=== PATIENT | male | born 1930 | race Caucasian/White ===

== ENCOUNTER 2017-05-30 12:35 | Observation (INO) | payer MEDICARE, OTHER ==
[2017-05-30] VITALS (10 sets, daily range): BP systolic 115–203; BP diastolic 56–88; PULSE 57–66; RESP 16–24; TEMP 97.7–98.6; O2SAT 97–99
[~2017-05-30] VITALS: Ht 180.3 cm; Wt 81.0 kg
[~2017-05-30 12:35] MED LIST: AMBI5TAB PO; COUM5TAB PO; DARV PO; DIOV160T6 PO; LORT7.5T3 PO; ZOCO40TA PO
[2017-05-30] MEDS ORDERED: ZOCO40TA PO (12:49)
[2017-05-30] MEDS ORDERED: SODIUM CHLORIDE 0.9% FLUSH 10 ML FLUSH IVF PRN (13:00)
[2017-05-30] MEDS ORDERED: TETANUS/DIPHTHERIA TOXOID ADULT 0.5 ML VIAL IM ONE (13:00)
[2017-05-30] MEDS ORDERED: TRAM50TA PO (13:21)
[2017-05-30] MEDS ORDERED: GABA300C5 PO (13:21)
[2017-05-30 13:31] LABS: AUTOMATED NEUTROPHIL # 6.8 TH/MM3 (1.8-7.7); BASOPHIL % 0.5 % (0.0-2.0); EOSINOPHIL # 0.3 TH/MM3 (0-0.4); EOSINOPHIL % 2.7 % (0.0-4.0); HEMATOCRIT 37.4 % (39.0-51.0); HEMO FLAGS DIFF FINAL; LYMPH % 16.1 % (9.0-44.0); LYMPHOCYTE # 1.5 TH/MM3 (1.0-4.8); MEAN CELL VOLUME 88.2 FL (80.0-100.0); MEAN CORPUSCULAR HEMOGLOBIN 29.7 PG (27.0-34.0); MEAN CORPUSCULAR HGB CONC 33.7 % (32.0-36.0); MONO % 7.8 % (0.0-8.0); NEUT % 72.9 % (16.0-70.0); PLATELET COUNT 247 TH/MM3 (150-450); RED BLOOD COUNT 4.24 MIL/MM3 (4.50-5.90); RED CELL DISTRIBUTION WIDTH 13.9 % (11.6-17.2); WHITE BLOOD COUNT 9.3 TH/MM3 (4.0-11.0)
--- NOTE | 2017-05-30 13:39 | PD ---
HPI Chief Complaint: Syncope/Near-Syncope Time Seen by Provider: 13:16 Travel History International Travel<30 days: No Contact w/Intl Traveler<30days: No Traveled to known affect area: No History of Present Illness HPI 87 YO M with PMH of bladder cancer presents to the ED via EMS for evaluation [place] fall in the [place] parking lot. The patient states that he was there to volunteer today, but there was no need for him so he walked back out to this car. He is unsure of the events that followed. He states that he was feeling in his normal state of health before the accident. On presentation he denies headache, dizziness, blurred vision, chest pain, palpitations, shortness of breath, abdominal pain, nausea, vomiting, numbness, tingling, weakness, limitations to range of motion of the extremities. PFSH Past Medical History Blood Disorders: No Cancer: Yes (hx of bladder) Cardiovascular Problems: Yes High Cholesterol: Yes Chemotherapy: Yes (yes) Diminished Hearing: No Endocrine: No Gastrointestinal Disorders: Yes GERD: Yes Genitourinary: Yes (hx of bladder cancer) Hypertension: Yes Immune Disorder: No Musculoskeletal: No Neurologic: No Psychiatric: No Reproductive: No Respiratory: No Influenza Vaccination: Yes Past Surgical History Abdominal Surgery: Yes (appendectomy) Eye Surgery: Yes (luz cataract removal) Genitourinary Surgery: Yes (extensive bladder surgery due to cancer received chemo) Other Surgery: Yes Social History Alcohol Use: Yes (occ) Tobacco Use: No Substance Use: No Allergies-Medications (Allergen,Severity, Reaction): Coded Allergies: No Known Allergies (Unverified , 05/30/17) Reported Meds & Prescriptions Reported Meds & Active Scripts Active Reported Tramadol (Tramadol HCl) 50 Mg Tab 50 Mg PO BID Gabapentin 300 Mg Cap 300 Mg PO HS Zocor (Simvastatin) 40 Mg Tab 40 Mg PO HS Review of Systems Except as stated in HPI: all other systems reviewed are Neg Physical Exam Narrative GENERAL: Well-nourished, well-developed white male in no acute distress. Sitting up on the stretcher, alert, oriented. SKIN: Warm and dry. 2 cm laceration lateral to the right eye. Small abrasions in the same area. Skin tears and abrasion of the right wrist and hand. Abrasion of the right knee. HEAD: Normocephalic. No raccoon eyes or yung sign. No tenderness to palpation of the skull or facial bones. No bony step-offs. No malocclusion of the teeth. EYES: No scleral icterus. No injection or drainage. PERRLA. EOMI. ENT: Pearly dykes tympanic membrane is bilaterally. Nasal mucosa is moist. Oropharynx without erythema, edema or exudate. No malocclusion of the teeth. NECK: Supple, trachea midline. No JVD or lymphadenopathy. No midline tenderness to palpation. Patient retains full, active, painless range of motion of the neck. CARDIOVASCULAR: Regular rate and rhythm without murmurs, gallops, or rubs. 2+ DP and radial pulses bilaterally. RESPIRATORY: Breath sounds clear and equal bilaterally. No accessory muscle use. GASTROINTESTINAL: Abdomen soft, non-tender, nondistended. + Bowel sounds MUSCULOSKELETAL: No cyanosis, or edema. No tenderness to palpation or limitations to range of motion of the joints of the upper and lower extremities bilaterally. NEUROLOGICAL: Awake and alert. Cranial nerves II through XII intact. Motor and sensory grossly within normal limits. 5/5 muscle strength in all muscle groups. Normal speech. BACK: Nontender without obvious deformity. No CVA tenderness. No midline tenderness. Data Data Last Documented VS Vital Signs Date Time Temp Pulse Resp B/P (MAP) Pulse Ox O2 Delivery O2 Flow Rate FiO2 05/30/17 15:23 97.9 59 17 172/71 (104) 99 Room Air Orders Orders Electrocardiogram (05/30/17 ) Electrocardiogram (05/30/17 12:58) Complete Blood Count With Diff (05/30/17 12:58) Comprehensive Metabolic Panel (05/30/17 12:58) Magnesium (Mg) (05/30/17 12:58) Ckmb (Isoenzyme) Profile (05/30/17 12:58) Troponin I (05/30/17 12:58) Act Partial Throm Time (Ptt) (05/30/17 12:58) Prothrombin Time / Inr (Pt) (05/30/17 12:58) Urinalysis - C+S If Indicated (05/30/17 12:58) Chest, Single Ap (05/30/17 12:58) Ct Brain W/O Iv Contrast(Rout) (05/30/17 12:58) Ecg Monitoring (05/30/17 12:58) Iv Access Insert/Monitor (05/30/17 12:58) Oximetry (05/30/17 12:58) Sodium Chloride 0.9% Flush (Ns Flush) (05/30/17 13:00) Tetanus/Diphtheria Tox Adult (Tetanus/Di (05/30/17 13:00) Sodium Chlor 0.9% 1000 Ml Inj (Ns 1000 M (05/30/17 14:00) Lidocaine 1% Inj (50 Ml) (Xylocaine 1% I (05/30/17 14:15) Admit Order (Ed Use Only) (05/30/17 15:48) Labs Laboratory Tests Test 05/30/17 13:10 White Blood Count 9.3 TH/MM3 Red Blood Count 4.24 MIL/MM3 Hemoglobin 12.6 GM/DL Hematocrit 37.4 % Mean Corpuscular Volume 88.2 FL Mean Corpuscular Hemoglobin 29.7 PG Mean Corpuscular Hemoglobin Concent 33.7 % Red Cell Distribution Width 13.9 % Platelet Count 247 TH/MM3 Mean Platelet Volume 8.4 FL Neutrophils (%) (Auto) 72.9 % Lymphocytes (%) (Auto) 16.1 % Monocytes (%) (Auto) 7.8 % Eosinophils (%) (Auto) 2.7 % Basophils (%) (Auto) 0.5 % Neutrophils # (Auto) 6.8 TH/MM3 Lymphocytes # (Auto) 1.5 TH/MM3 Monocytes # (Auto) 0.7 TH/MM3 Eosinophils # (Auto) 0.3 TH/MM3 Basophils # (Auto) 0.0 TH/MM3 CBC Comment DIFF FINAL Differential Comment Prothrombin Time 10.7 SEC Prothromb Time International Ratio 1.0 RATIO Activated Partial Thromboplast Time 25.3 SEC Blood Urea Nitrogen 23 MG/DL Creatinine 1.30 MG/DL Random Glucose 123 MG/DL Total Protein 7.1 GM/DL Albumin 3.6 GM/DL Calcium Level 8.8 MG/DL Magnesium Level 2.1 MG/DL Alkaline Phosphatase 80 U/L Aspartate Amino Transf (AST/SGOT) 15 U/L Alanine Aminotransferase (ALT/SGPT) 23 U/L Total Bilirubin 0.5 MG/DL Sodium Level 138 MEQ/L Potassium Level 4.1 MEQ/L Chloride Level 104 MEQ/L Carbon Dioxide Level 28.4 MEQ/L Anion Gap 6 MEQ/L Estimat Glomerular Filtration Rate 52 ML/MIN Total Creatine Kinase 61 U/L Troponin I LESS THAN 0.02 NG/ML MDM Medical Decision Making Medical Screen Exam Complete: Yes Emergency Medical Condition: Yes Differential Diagnosis laceration versus skull fracture versus ICH versus ACS versus metabolic derangement versus other Narrative Course 87 YO M with PMH of bladder cancer presents to the ED via [facility]. The patient states that he was there to volunteer today, but there was no need for him so he walked back out to this car. He is unsure of the events that followed. He states that he was feeling in his normal state of health before the accident. No somatic complaints on presentation. Vitals reviewed. Physical exam reveals a pleasant white male in NAD. Small lac lateral to the right eye, a few scattered abrasions noted. Exam otherwise reassuring. Patient was administered 1 L normal saline. Tetanus immunization was updated. Laceration repair was performed, please see my note for details. EKG: rate 59, sinus arrhythmia with first-degree AV block. NO acute ST changes. Stable as compared to last recorded EKG, 2009. Reviewed by Dr. Sherwood. Cardiac enzymes: negative 1. CXR: no acute disease per radiology read. CBC: WBC 9.3, hemoglobin 12.6. CMP: BUN 23, creatinine 1.3. Glucose [address] BRAIN: Senescent changes, no acute intracranial abnormality per radiology read. UA pending. Plan to admit for syncope workup. The patient and his daughter are agreeable. Dr. Sherwood spoke with who agrees to accept the patient to the medicine service. Please see medicine notes for disposition. Procedures Procedure Narrative LACERATION LOCATION: Just lateral to the right eye LENGTH: 2 cm NUMBER OF STITCHES/CARLOS: 4 REPAIR: The area of the laceration was prepped with Betadine and sterilely draped. The laceration was infiltrated with 1% lidocaine. The wound was copiously irrigated and explored without evidence of foreign body, tendon injury or neurovascular injury. The wound was closed using 5-0 nylon. This was a single layer repair. A sterile dressing was applied. The patient was advised to keep the dressing clean and dry. Patient tolerated the procedure well. Lise White May 30, 2017 13:39
[2017-05-30 13:41] LABS: APTT (PATIENT) 25.3 SEC (24.3-30.1); PROTHROMBIN TIME - PATIENT 10.7 SEC (9.8-11.6)
[2017-05-30 13:49] LABS: ALT (GPT) 23 U/L (12-78); ANION GAP 6 MEQ/L (5-15); AST (GOT) 15 U/L (15-37); BICARBONATE 28.4 MEQ/L (21.0-32.0); BLOOD UREA NITROGEN 23 MG/DL (7-18); CHLORIDE 104 MEQ/L (98-107); GLOMERULAR FILTRATION RATE 52 ML/MIN (>89); MAGNESIUM 2.1 MG/DL (1.5-2.5); POTASSIUM 4.1 MEQ/L (3.5-5.1); SODIUM (NA) 138 MEQ/L (136-145)
[2017-05-30] MEDS ORDERED: SODIUM CHLOR 0.9% 1000 ML INJ 1,000 ML IV ONE (14:00)
--- NOTE | 2017-05-30 14:03 | RADRPT ---
EXAM DATE/TIME: 05/30/2017 13:33 [facility] COMPARISON: No previous studies available for comparison. INDICATIONS : Tripped and fell. MEDICAL HISTORY : None. SURGICAL HISTORY : None. ENCOUNTER: Initial ACUITY: 1 day PAIN SCORE: 0/10 LOCATION: Bilateral chest FINDINGS: A single view of the chest demonstrates the lungs to be symmetrically aerated without evidence of mas s, infiltrate or effusion. The cardiomediastinal contours are unremarkable. Osseous structures are intact. CONCLUSION: No acute disease. Hardik Jefferson MD on May 30, 2017 at 13:52 Board Certified Radiologist. This report was verified electronically.
[2017-05-30 14:04] LABS: ALKALINE PHOSPHATASE 80 U/L (45-117); TOTAL BILIRUBIN ADULT 0.5 MG/DL (0.2-1.0)
[2017-05-30 14:10] LABS: CREATINE KINASE 61 U/L (39-308)
[2017-05-30] MEDS ORDERED: LIDOCAINE HCL 1% 50 ML VIAL INFIL ONE (14:15)
--- NOTE | 2017-05-30 14:29 | RADRPT ---
EXAM DATE/TIME: 05/30/2017 14:07 [facility] COMPARISON: No previous studies available for comparison. INDICATIONS : Syncope, fall, laceration right eyebrow RADIATION DOSE: 42.55 CTDIvol (mGy) MEDICAL HISTORY : Hypertension. Cardiovascular disease Carcinoma, bladder. SURGICAL HISTORY : None. ENCOUNTER: Initial ACUITY: 1 day PAIN SCALE: 5/10 LOCATION: Right frontal TECHNIQUE: Multiple contiguous axial images were obtained of the head. Using automated exposure control and adj ustment of the mA and/or kV according to patient size, radiation dose was kept as low as reasonably a chievable to obtain optimal diagnostic quality images. DICOM format image data is available electro nically for review and comparison. FINDINGS: CEREBRUM: Mild to moderate diffuse cerebral volume loss. The ventricles are in the upper limits of normal for d egree of atrophy. No evidence of midline shift, mass lesion, hemorrhage or acute infarction. No ext ra-axial fluid collections are seen. POSTERIOR FOSSA: The cerebellum and brainstem are intact. The 4th ventricle is midline. The cerebellopontine angle i s unremarkable. EXTRACRANIAL: The visualized portion of the orbits is intact. SKULL: The calvaria is intact. No evidence of skull fracture. CONCLUSION: 1. Senescent changes. 2. No acute intracranial abnormality. Wan Lockwood MD on May 30, 2017 at 14:26 Board Certified Radiologist. This report was verified electronically.
--- NOTE | 2017-05-30 15:21 | PD ---
Physical Exam Narrative GENERAL: Well-nourished, well-developed patient. SKIN: Warm and dry. HEAD: Normocephalic and abrasions noted, sutures to right upper eye area EYES: No injection or drainage. ENT: No nasal drainage noted. NECK: Supple, trachea midline. CARDIOVASCULAR: Regular rate and rhythm RESPIRATORY: Breath sounds equal bilaterally. No accessory muscle use. GASTROINTESTINAL: Abdomen nondistended. NEUROLOGICAL: Awake and alert. Motor and sensory grossly within normal limits. Normal speech. Data Data Last Documented VS Vital Signs Date Time Temp Pulse Resp B/P (MAP) Pulse Ox O2 Delivery O2 Flow Rate FiO2 05/30/17 15:23 97.9 59 17 172/71 (104) 99 Room Air Orders Orders Electrocardiogram (05/30/17 ) Electrocardiogram (05/30/17 12:58) Complete Blood Count With Diff (05/30/17 12:58) Comprehensive Metabolic Panel (05/30/17 12:58) Magnesium (Mg) (05/30/17 12:58) Ckmb (Isoenzyme) Profile (05/30/17 12:58) Troponin I (05/30/17 12:58) Act Partial Throm Time (Ptt) (05/30/17 12:58) Prothrombin Time / Inr (Pt) (05/30/17 12:58) Urinalysis - C+S If Indicated (05/30/17 12:58) Chest, Single Ap (05/30/17 12:58) Ct Brain W/O Iv Contrast(Rout) (05/30/17 12:58) Ecg Monitoring (05/30/17 12:58) Iv Access Insert/Monitor (05/30/17 12:58) Oximetry (05/30/17 12:58) Sodium Chloride 0.9% Flush (Ns Flush) (05/30/17 13:00) Tetanus/Diphtheria Tox Adult (Tetanus/Di (05/30/17 13:00) Sodium Chlor 0.9% 1000 Ml Inj (Ns 1000 M (05/30/17 14:00) Lidocaine 1% Inj (50 Ml) (Xylocaine 1% I (05/30/17 14:15) Admit Order (Ed Use Only) (05/30/17 15:48) Physician Name Changes (05/30/17 ) Comprehensive Metabolic Panel (05/31/17 06:00) Free Thyroxine (T4) (05/31/17 06:00) Hemoglobin (Hgb) A1c (05/31/17 06:00) Magnesium (Mg) (05/31/17 06:00) Phosphorus (Po4) (05/31/17 06:00) Thyroid Stimulating Hormone (05/31/17 06:00) Complete Blood Count With Diff (05/31/17 06:00) Place In Observation (05/30/17 ) Code Status (05/30/17 15:53) Vital Signs (Adult) Q4H (05/30/17 15:53) Neuro Checks Q4H (05/30/17 15:53) Activity Oob With Assistance (05/30/17:53) Shingles Roofer Helper / Telemetry .CONTINUOUS (05/30/17:53) Intake + Output DEBI.QSHIFT (05/30/17 15:53) Diet Heart Healthy (05/30/17 Dinner) Sodium Chloride 0.9% Flush (Ns Flush) (05/30/17 16:00) Sodium Chloride 0.9% Flush (Ns Flush) (05/30/17 21:00) Acetaminophen (Tylenol) (05/30/17 16:00) Ondansetron Inj (Zofran Inj) (05/30/17 16:00) Prochlorperazine Supp (Compazine Supp) (05/30/17 16:00) Creatine Kinase (Cpk) (05/30/17 15:53) Creatine Kinase (Cpk) (05/30/17 21:53) Creatine Kinase (Cpk) (05/31/17 03:53) Troponin I (05/30/17 15:53) Troponin I (05/30/17 21:53) Troponin I (05/31/17 03:53) Urinalysis - C+S If Indicated (05/30/17 15:53) Electrocardiogram (05/30/17 15:53) Electrocardiogram (05/30/17:53) Resp Oxygen Jesús C Titrat 1-4 L (05/30/17 ) Pt Request For Service (05/30/17 15:53) Ot Request For Service (05/30/17 15:53) Case Management Consult (05/30/17 15:53) Scd Bilateral/Knee High DEBI.BID (05/30/17 15:53) Clarence Bilateral/Knee High DEBI.QSHIFT (05/30/17 16:00) Acetaminophen (Tylenol) (05/30/17 16:00) Oxycodone-Acetamin 5-325 Mg (Percocet (05/30/17 16:00) Oxycodone-Acetamin 10-325 Mg (Percocet 1 (05/30/17 16:00) Morphine Inj (Morphine Inj) (05/30/17 16:00) Morphine Inj (Morphine Inj) (05/30/17 16:00) Naloxone Inj (Narcan Inj) (05/30/17 16:00) Docusate Sodium-Senna (Kimberley-Colace) (05/30/17 21:00) Magnesium Hydroxide Liq (Milk Of Magnesi (05/30/17 16:00) Sennosides (Senokot) (05/30/17 16:00) Bisacodyl Supp (Dulcolax Supp) (05/30/17 16:00) Lactulose Liq (Lactulose Liq) (05/30/17 16:00) Vital Signs (Adult) Q4H (05/30/17 15:53) Shingles Roofer Helper / Telemetry DEBI.Q8H (05/30/17 15:53) Neuro Checks Q4H (05/30/17 15:53) Sodium Chloride 0.9% Flush (Ns Flush) (05/30/17 16:00) Sodium Chloride 0.9% Flush (Ns Flush) (05/30/17 21:00) Echo 2d Comp With Doppler (05/30/17 ) Us Carotid Arteries Comp Bilat (05/30/17 ) Resp Oxygen Jesús C Titrat 1-4 L (05/30/17 ) Consult Cardiology (05/30/17 ) Labs Laboratory Tests Test 05/30/17 13:10 White Blood Count 9.3 TH/MM3 Red Blood Count 4.24 MIL/MM3 Hemoglobin 12.6 GM/DL Hematocrit 37.4 % Mean Corpuscular Volume 88.2 FL Mean Corpuscular Hemoglobin 29.7 PG Mean Corpuscular Hemoglobin Concent 33.7 % Red Cell Distribution Width 13.9 % Platelet Count 247 TH/MM3 Mean Platelet Volume 8.4 FL Neutrophils (%) (Auto) 72.9 % Lymphocytes (%) (Auto) 16.1 % Monocytes (%) (Auto) 7.8 % Eosinophils (%) (Auto) 2.7 % Basophils (%) (Auto) 0.5 % Neutrophils # (Auto) 6.8 TH/MM3 Lymphocytes # (Auto) 1.5 TH/MM3 Monocytes # (Auto) 0.7 TH/MM3 Eosinophils # (Auto) 0.3 TH/MM3 Basophils # (Auto) 0.0 TH/MM3 CBC Comment DIFF FINAL Differential Comment Prothrombin Time 10.7 SEC Prothromb Time International Ratio 1.0 RATIO Activated Partial Thromboplast Time 25.3 SEC Blood Urea Nitrogen 23 MG/DL Creatinine 1.30 MG/DL Random Glucose 123 MG/DL Total Protein 7.1 GM/DL Albumin 3.6 GM/DL Calcium Level 8.8 MG/DL Magnesium Level 2.1 MG/DL Alkaline Phosphatase 80 U/L Aspartate Amino Transf (AST/SGOT) 15 U/L Alanine Aminotransferase (ALT/SGPT) 23 U/L Total Bilirubin 0.5 MG/DL Sodium Level 138 MEQ/L Potassium Level 4.1 MEQ/L Chloride Level 104 MEQ/L Carbon Dioxide Level 28.4 MEQ/L Anion Gap 6 MEQ/L Estimat Glomerular Filtration Rate 52 ML/MIN Total Creatine Kinase 61 U/L Troponin I LESS THAN 0.02 NG/ML [facility] Medical Record Reviewed: Yes Supervised Visit with GALE: Yes Interpretation(s) Last [address] 05/30/17 1258 Signed Impressions: Service Date/Time: Tuesday, May 30, 2017 14:07 - CONCLUSION: 1. Senescent changes. 2. No acute intracranial abnormality. Wan Lockwood MD Chest X-Ray 05/30/17 1258 Signed Impressions: Service Date/Time: Tuesday, May 30, 2017 13:33 - CONCLUSION: No acute disease. Hardik Jefferson MD CBC & BMP Diagram 05/30/17 13:10 Total Protein 7.1, Albumin 3.6, Calcium Level 8.8, Magnesium Level 2.1, Alkaline Phosphatase 80, Aspartate Amino Transf (AST/SGOT) 15, Alanine Aminotransferase (ALT/SGPT) 23, Total Bilirubin 0.5 Narrative Course I, Dr. sherwood, have reviewed the advance practice practitioner's documentation and am in agreement, met with the patient face to face, made the diagnosis, and the medical decision making was done by me. *My assessment and Findings: 87-year-old male presents status post fall with unknown mechanism of whether he passed out before after he fell. He states that he has no complaints now other than his head. ER workup without emergent findings. Discussed with patient about further testing in the hospital versus outpatient for possible syncope and he agrees to stay in the hospital for further care. Physician Communication Physician Communication dr laboy agrees to observation Diagnosis Primary Impression: Syncope Qualified Codes: R55 - Syncope and collapse Additional Impressions: Fall from standing Qualified Codes: W19.XXXA - Unspecified fall, initial encounter Abrasion, right knee, initial encounter Laceration of skin of face Qualified Codes: S01.81XA - Laceration without foreign body of other part of head, initial encounter Admitting Information Admitting Physician Requests: Observation Victoria Sherwood MD May 30, 2017 15:21
[2017-05-30] MEDS ORDERED: ACETAMINOPHEN 325 MG TAB PO PRN ×2 (16:00)
[2017-05-30] MEDS ORDERED: PROCHLORPERAZINE 25 MG SUPP RECTAL PRN (16:00)
[2017-05-30] MEDS ORDERED: MAGNESIUM HYDROXIDE SUSP 30 ML CUP PO PRN (16:00)
[2017-05-30] MEDS ORDERED: LACTULOSE SYRUP 20 GM/30 ML CUP PO PRN (16:00)
[2017-05-30] MEDS ORDERED: MORPHINE SULFATE 4 MG/ML INJ IV PUSH PRN (16:00)
[2017-05-30] MEDS ORDERED: BISACODYL 10 MG SUPP RECTAL PRN (16:00)
[2017-05-30] MEDS ORDERED: SODIUM CHLORIDE 0.9% FLUSH 10 ML FLUSH IV FLUSH PRN ×2 (16:00)
[2017-05-30] MEDS ORDERED: NALOXONE HCL 0.4 MG/ML AMP IV PUSH PRN (16:00)
[2017-05-30] MEDS ORDERED: oxyCODONE/ACETAMINOPHEN 10 MG/325 MG TAB PO PRN (16:00)
[2017-05-30] MEDS ORDERED: SENNOSIDES 8.6 MG TAB PO PRN (16:00)
[2017-05-30] MEDS ORDERED: ONDANSETRON HCL 4 MG/2 ML VIAL IVP PRN (16:00)
[2017-05-30] MEDS ORDERED: oxyCODONE/ACETAMINOPHEN 5 MG/325 MG TAB PO PRN (16:00)
[2017-05-30] MEDS ORDERED: MORPHINE SULFATE 2 MG/ML INJ IV PUSH PRN (16:30)
--- NOTE | 2017-05-30 17:45 | RADRPT ---
EXAM DATE/TIME: 05/30/2017 16:51 [facility] COMPARISON: No previous studies available for comparison. INDICATIONS : Syncope. MEDICAL HISTORY : Hypercholesterolemia. Hypertension. Gastroesophageal reflux disease. Tuberculosis. Carcinoma, bladde r. Chemotherapy. SURGICAL HISTORY : Bladder surgery. Right knee surgery. ENCOUNTER: Initial ACUITY: 1 day PAIN SCORE: 7/10 LOCATION: Bilateral neck PEAK SYSTOLIC VELOCITIES (cm/sec): ICA/CCA RATIO: Right: 0.9 Left: 1.2 ICA: Right: 72.7 Left: 90.4 CCA: Right: 77.4 Left: 72.7 ECA: Right: 90.5 Left: 60.7 VERTEBRAL: Right: 31.3 antegrade Left: 58.1 antegrade Elevated flow velocities and ICA/CCA ratios have been found to correlate with increased degrees of vessel stenosis, calculated as percentage of diameter relative to a normal segment of distal ICA/CCA FINDINGS: Minimal heterogeneous plaque is identified in the carotid bifurcations. RIGHT CAROTID: No significant stenosis is visualized. The waveforms are within normal limits. LEFT CAROTID: No significant stenosis is visualized. The waveforms are within normal limits. VERTEBRAL ARTERIES: Antegrade flow is seen in both vertebral arteries. MISCELLANEOUS: None. CONCLUSION: Minimal carotid plaque without evidence of hemodynamically significant stenosis. Antegrade flow both vertebral arteries. Tomy Leiva MD on May 30, 2017 at 17:43 Board Certified Radiologist. This report was verified electronically.
--- NOTE | 2017-05-30 18:03 | HHI.HP ---
[facility] Service [facility] [place] [facility] Primary Care Physician [facility] Admission Diagnosis syncope Diagnoses: (1) Fall from standing Diagnosis: Principal (2) Laceration of skin of face Diagnosis: Principal (3) Abrasion, right knee, initial encounter Diagnosis: Principal (4) Syncope Diagnosis: Principal Chief Complaint: SYNCOPE AND NEAR SYNCOPE Travel History International Travel<30 Days: No Contact w/Intl Traveler <30 Da: No Traveled to Known Affected Are: No History of Present Illness Patient is a 87 YO MALE with PMH of bladder cancer presents to the ED via EMS for evaluation after fall in the [place] parking lot on the sidewalk. The patient states that he was there to volunteer today, but there was no need for him so he walked back out to this car. He is unsure of the events that followed. He states that he was feeling in his normal state of health before the accident. On presentation he denies headache, dizziness, blurred vision, chest pain, palpitations, shortness of breath, abdominal pain, nausea, vomiting, numbness, tingling, weakness, limitations to range of motion of the extremities. Patient fell and hit his right side of his head that has been repaired already Patient does not remember falling does not remember any aura or anything prior to following Patient states his daughter found an unevenness in the sidewalk that he probably tripped over and found a blood spot not far from from his head laceration Review of Systems Constitutional: DENIES: Diaphoretic episodes, Fatigue, Fever, Weight gain, Weight loss, Chills, Dizziness, Change in appetite Endocrine: DENIES: Heat/cold intolerance, Polydipsia, Polyuria, Polyphagia Eyes: DENIES: Blurred vision, Diplopia, Eye inflammation, Eye pain, Vision loss Ears, nose, mouth, throat: DENIES: Tinnitus, Hearing loss, Vertigo, Nasal discharge Respiratory: DENIES: Apneas, Cough, Snoring, Wheezing, Hemoptysis Cardiovascular: COMPLAINS OF: Syncope, DENIES: Chest pain, Palpitations, Dyspnea on Exertion, PND, Lower Extremity Edema Gastrointestinal: DENIES: Abdominal pain, Black stools, Bloody stools, Constipation, Diarrhea Genitourinary: DENIES: Sexual dysfunction, Urinary frequency Musculoskeletal: DENIES: Joint pain, Muscle aches, Stiffness, Joint Swelling Integumentary: DENIES: Abnormal pigmentation, Nail changes, Pruritus Hematologic/lymphatic: DENIES: Bruising, Lymphadenopathy Immunologic/allergic: DENIES: Eczema, Urticaria Neurologic: DENIES: Abnormal gait, Headache, Localized weakness, Paresthesias, Seizures Psychiatric: DENIES: Anxiety, Confusion, Mood changes, Depression, Hallucinations, Agitation, Suicidal Ideation Past Family Social History Past Medical History History of bladder cancer Hypertension Hypercholesterolemia GERD History of bladder cancer Possible history of MRSA Past Surgical History Appendectomy Bilateral cataract removal Excision of bladder tumor for bladder cancer Right knee surgery Dupuytren's contractures bilaterally Reported Medications Reported Meds & Active Scripts Active Reported Tramadol (Tramadol HCl) 50 Mg Tab 50 Mg PO BID Gabapentin 300 Mg Cap 300 Mg PO HS Zocor (Simvastatin) 40 Mg Tab 40 Mg PO HS Allergies: Coded Allergies: No Known Allergies (Unverified , 05/30/17) Active Ordered Medications Current Medications Sodium Chloride (NS Flush) 2 ml UNSCH PRN IVF FLUSH AFTER USING IV ACCESS Last administered on 05/30/17 13:15; Start 05/30/17 at 13:00; Stop 05/30/17 at 16 :06; Status DC Tetanus/ Diphtheria Toxoids (Tetanus/ Diphtheria Tox Adult) 0.5 ml ONCE ONCE IM Last administered on 05/30/17 13:16; Start 05/30/17 at 13:00; Stop at 13:09; Status DC Sodium Chloride 1,000 ml @ 999 mls/hr BOLUS ONCE IV Last administered on 14:05; Start 05/30/17 at 14:00; Stop 05/30/17 at 15:00; Status DC Lidocaine HCl (Xylocaine 1% Inj (50 ml)) 50 ml ONCE ONCE INFIL Last administered on 05/30/17 14:17; Start 05/30/17 at 14:15; Stop 05/30/17 at 14 :16; Status DC Sodium Chloride (NS Flush) 2 ml UNSCH PRN IV FLUSH FLUSH AFTER USING IV ACCESS ; Start 05/30/17 at 16:00 Sodium Chloride (NS Flush) 2 ml BID IV FLUSH ; Start 05/30/17 at 21:00 Acetaminophen (Tylenol) 650 mg Q4H PRN PO TEMP > 100.4; Start 05/30/17 at 16: 00 Ondansetron HCl (Zofran Inj) 4 mg Q6H PRN IVP NAUSEA OR VOMITING; Start at 16:00 Prochlorperazine (Compazine Supp) 25 mg Q12H PRN RECTAL NAUSEA OR VOMITING; Start 05/30/17 at 16:00 Acetaminophen (Tylenol) 650 mg Q6H PRN PO PAIN SCALE 1 TO 2; Start 05/30/17 at 16:00 Oxycodone/ Acetaminophen (Percocet 5-325 Mg) 1 tab Q6H PRN PO PAIN SCALE 3 TO 5; Start 05/30/17 at 16:00 Oxycodone/ Acetaminophen (Percocet 10-325 Mg) 1 tab Q6H PRN PO PAIN SCALE 6 TO 10; Start 05/30/17 at 16:00 Morphine Sulfate (Morphine Inj) 2 mg Q3H PRN IV PUSH Pain 3-5; if unable to take PO; Start 05/30/17 at 16:30 Morphine Sulfate (Morphine Inj) 4 mg Q3H PRN IV PUSH Pain 6-10;if unable to take PO; Start 05/30/17 at 16:00 Naloxone HCl (Narcan Inj) 0.4 mg UNSCH PRN IV PUSH SEE LABEL COMMENTS; Start 05/30/17 at 16:00 Senna/Docusate Sodium (Kimberley-Colace) 1 tab BID PO ; Start 05/30/17 at 21:00 Magnesium Hydroxide (Milk Of Magnesia Liq) 30 ml Q12H PRN PO MILD - MODERATE CONSTIPATION; Start 05/30/17 at 16:00 Sennosides (Senokot) 17.2 mg Q12H PRN PO MODERATE - SEVERE CONSTIPATION; Start 05/30/17 at 16:00 Bisacodyl (Dulcolax Supp) 10 mg DAILY PRN RECTAL SEVERE CONSITIPATION; Start 05/30/17 at 16:00 Lactulose (Lactulose Liq) 30 ml DAILY PRN PO SEVERE CONSITIPATION; Start 05/30 at 16:00 Sodium Chloride (NS Flush) 2 ml UNSCH PRN IV FLUSH FLUSH AFTER USING IV ACCESS ; Start 05/30/17 at 16:00; Status UNV Sodium Chloride (NS Flush) 2 ml BID IV FLUSH ; Start 05/30/17 at 21:00; Status UNV Gabapentin (Neurontin) 300 mg HS PO ; Start 05/30/17 at 21:00 Tramadol HCl (Ultram) 50 mg BID PO ; Start 05/30/17 at 21:00 Pravastatin Sodium (Pravachol) 80 mg HS PO ; Start 05/30/17 at 21:00 Family History Both parents possible hypertension Social History Occasional alcohol use Denies any tobacco denies any illicits Physical Exam Vital Signs Vital Signs Date Time Temp Pulse Resp B/P (MAP) Pulse Ox O2 Delivery O2 Flow Rate FiO2 05/30/17 17:16 97.7 57 24 156/69 (98) 97 05/30/17 16:00 97.8 59 16 150/76 (100) 99 05/30/17 15:23 97.9 59 17 172/71 (104) 99 Room Air 05/30/17 13:17 66 16 146/67 (93) 98 05/30/17 13:13 16 98 Room Air 05/30/17 12:58 61 16 98 Room Air 05/30/17 12:45 97.8 60 16 203/88 (126) Physical Exam GENERAL: This is a well-nourished, well-developed patient, in no apparent distress. SKIN: No rashes, ecchymoses or lesions. Cool and dry. Right side of his head is dressed from where he hit his head laceration repaired HEAD: Atraumatic. Normocephalic. No temporal or scalp tenderness. Right side of his head is dressed from where he hit his head laceration has been repaired EYES: Pupils equal round and reactive. Extraocular motions intact. No scleral icterus. No injection or drainage. ENT: Nose without bleeding, purulent drainage or septal hematoma. Throat without erythema, tonsillar hypertrophy or exudate. Uvula midline. Airway patent. Tongue is midline NECK: Trachea midline. No JVD or lymphadenopathy. Supple, nontender, no meningeal signs. CARDIOVASCULAR: Regular rate and rhythm without murmurs, gallops, or rubs. S1- S2 no S3 or S4 no heave or thrill or rub or gallop RESPIRATORY: Clear to auscultation. Breath sounds equal bilaterally. No wheezes , rales, or rhonchi. GASTROINTESTINAL: Abdomen soft, non-tender, nondistended. No hepato-splenomegaly , or palpable masses. No guarding. MUSCULOSKELETAL: Extremities without clubbing, cyanosis, or edema. No joint tenderness, effusion, or edema noted. No calf tenderness. Negative Homans sign bilaterally. NEUROLOGICAL: Awake and alert. Cranial nerves II through XII intact. Motor and sensory grossly within normal limits. 4 out of 5 muscle strength in all muscle groups. Normal speech. Insight and judgment is good Mood and behavior is appropriate Laboratory Laboratory Tests Test 05/30/17 13:10 White Blood Count 9.3 Red Blood Count 4.24 Hemoglobin 12.6 Hematocrit 37.4 Mean Corpuscular Volume 88.2 Mean Corpuscular Hemoglobin 29.7 Mean Corpuscular Hemoglobin Concent 33.7 Red Cell Distribution Width 13.9 Platelet Count 247 Mean Platelet Volume 8.4 Neutrophils (%) (Auto) 72.9 Lymphocytes (%) (Auto) 16.1 Monocytes (%) (Auto) 7.8 Eosinophils (%) (Auto) 2.7 Basophils (%) (Auto) 0.5 Neutrophils # (Auto) 6.8 Lymphocytes # (Auto) 1.5 Monocytes # (Auto) 0.7 Eosinophils # (Auto) 0.3 Basophils # (Auto) 0.0 CBC Comment DIFF FINAL Differential Comment Prothrombin Time 10.7 Prothromb Time International Ratio 1.0 Activated Partial Thromboplast Time 25.3 Blood Urea Nitrogen 23 Creatinine 1.30 Random Glucose 123 Total Protein 7.1 Albumin 3.6 Calcium Level 8.8 Magnesium Level 2.1 Alkaline Phosphatase 80 Aspartate Amino Transf (AST/SGOT) 15 Alanine Aminotransferase (ALT/SGPT) 23 Total Bilirubin 0.5 Sodium Level 138 Potassium Level 4.1 Chloride Level 104 Carbon Dioxide Level 28.4 Anion Gap 6 Estimat Glomerular Filtration Rate 52 Total Creatine Kinase 61 Troponin I LESS THAN 0.02 Result Diagram: 05/30/17 1310 05/30/17 1310 Imaging Last Impressions Head CT 05/30/171257 Signed Impressions: Service Date/Time: Tuesday, May 30, 2017 14:07 - CONCLUSION: 1. Senescent changes. 2. No acute intracranial abnormality. Wan Lockwood MD Chest X-Ray 05/30/17 1252 Signed Impressions: Service Date/Time: Tuesday, May 30, 2017 13:33 - CONCLUSION: No acute disease. Hardik Jefferson MD Caprini VTE Risk Assessment Caprini VTE Risk Assessment: No/Low Risk (score <= 1) Caprini Risk Assessment Model Point Value = 1 Point Value = 2 Point Value = 3 Point Value = 5 Age 41-60 Minor surgery BMI > 25 kg/m2 Swollen legs Varicose veins or History of unexplained or recurrent spontaneous Oral contraceptives or hormone replacement Sepsis (< 1 month) Serious lung disease, including pneumonia (< 1 month) Abnormal pulmonary function Acute myocardial infarction Congestive heart failure (< 1 month) History of inflammatory bowel disease Medical patient at bed rest Age 61-74 Arthroscopic surgery Major open surgery (> 45 min) Laparoscopic surgery (> 45 min) Malignancy Confined to bed (> 72 hours) Immobilizing plaster cast Central venous access Age >= 75 History of VTE Family history of VTE Factor V Leiden Prothrombin [id number] Lupus anticoagulant Anticardiolipin antibodies Elevated serum homocysteine Heparin-induced thrombocytopenia Other congenital or acquired thrombophilia Stroke (< 1 month) Elective arthroplasty Hip, pelvis, or leg fracture Acute spinal cord injury (< 1 month) Prophylaxis Regimen Total Risk Factor Score Risk Level Prophylaxis Regimen 0-1 Low Early ambulation 2 Moderate Order ONE of the following: *Sequential Compression Device (SCD) *Heparin 5000 units SQ BID 3-4 Higher Order ONE of the following medications: *Heparin 5000 units SQ TID *Enoxaparin/Lovenox 40 mg SQ daily (WT < 150 kg, CrCl > 30 mL/min) *Enoxaparin/Lovenox 30 mg SQ daily (WT < 150 kg, CrCl > 10-29 mL/min) *Enoxaparin/Lovenox 30 mg SQ BID (WT < 150 kg, CrCl > 30 mL/min) AND/OR *Sequential Compression Device (SCD) 5 or more Highest Order ONE of the following medications: *Heparin 5000 units SQ TID (Preferred with Epidurals) *Enoxaparin/Lovenox 40 mg SQ daily (WT < 150 kg, CrCl > 30 mL/min) *Enoxaparin/Lovenox 30 mg SQ daily (WT < 150 kg, CrCl > 10-29 mL/min) *Enoxaparin/Lovenox 30 mg SQ BID (WT < 150 kg, CrCl > 30 mL/min) AND *Sequential Compression Device (SCD) Assessment and Plan Problem List: (1) Fall from standing ICD Code: W19.XXXA - Unspecified fall, initial encounter Status: Acute (2) Abrasion, right knee, initial encounter ICD Code: S80.211A - Abrasion, right knee, initial encounter Status: Acute (3) Syncope ICD Code: R55 - Syncope and collapse Status: Acute (4) Laceration of skin of face ICD Code: S01.81XA - Laceration without foreign body of other part of head, initial encounter Status: Acute Assessment and Plan Syncope versus near-syncope and mechanical fall Continue on telemetry; echo; will get carotids; will consult cardiology; we'll trend troponins; placed on a monitor Physical therapy and occupational therapy to eval and treat Hypertension home medications Hyperlipidemia home medications gait instability physical therapy and occupational therapy Right forehead abrasion dressed and treated by ER A.m. labs Code Status Full code Discussed Condition With Emergency room physician the patient and the nurse Problem Qualifiers (1) Fall from standing: Qualified Codes: W19.XXXA - Unspecified fall, initial encounter (2) Laceration of skin of face: Qualified Codes: S01.81XA - Laceration without foreign body of other part of head, initial encounter (3) Syncope: Qualified Codes: R55 - Syncope and collapse Jayme Teran DO May 30, 2017 18:03
[2017-05-30] MEDS: DOCUSATE SODIUM 50 MG/SENNA 8.6 MG TAB PO SCH (20:14)
[2017-05-30] MEDS: SODIUM CHLORIDE 0.9% FLUSH 10 ML FLUSH IV FLUSH SCH (20:14)
[2017-05-30] MEDS: traMADol HCL 50 MG TAB PO SCH (20:14)
--- NOTE | 2017-05-30 20:43 | MB ---
cc: DANDRE DE DIOS DO DATE OF CONSULTATION 05/30/17 REASON FOR CONSULTATION Possible syncope. HISTORY OF PRESENT ILLNESS Sam Villalobos is a pleasant 87-year-old male who presented to [facility] emergency room on May 30, 2017 after a fall. 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 He is kind of unsure exactly the events that followed. He states that while he was walking he had no chest pain, shortness of breath or palpitations and he remembers falling forward and hitting his head, but then does not remember anything afterwards. He does not feel that he blacked out at the time causing him to fall. He does not remember an aura before the episode. Per his daughter, they found an unevenness in the sidewalk that they felt he tripped over. While in the emergency room, his head was sutured up and he has had no further events. In seeing him, he states that he has never had chest pain, shortness of breath or palpitations. No other episodes of falls or feeling that he was going to pass out. PAST MEDICAL HISTORY 1. History of bladder cancer 2. Hypertension 3. Hyperlipidemia 4. Gastroesophageal reflux disease PAST SURGICAL HISTORY 1. Appendectomy. 2. Bilateral cataract removal. 3. Excision of bladder tumor for bladder cancer 4. Right knee surgery. 5. Dupuytren's contractures bilaterally. ALLERGIES NO KNOWN DRUG ALLERGIES. MEDICATIONS 1. Zocor 40 mg every night 2. Tramadol 50 mg b.i.d. 3. Gabapentin 300 mg every night. FAMILY HISTORY Denies premature coronary artery disease or sudden cardiac within the family. SOCIAL HISTORY Occasionally drinks alcohol. Denies tobacco or drug abuse. REVIEW OF SYSTEMS 14-systems were reviewed including osteopathic. Pertinent positives and negatives as above otherwise negative. PHYSICAL EXAMINATION VITAL SIGNS: Temperature 97.8, heart rate 59, blood pressure 150/76, respirations 16, pulse ox 99% on room air. GENERAL: The patient well in no acute distress, alert, awake and oriented x3. HEENT: Laceration noted over the right eye. Mucous membranes moist. NECK: Supple. No JVD at 45 degrees. No carotid bruits heard bilaterally. Carotid upstroke is brisk in nature. HEART: Regular rate and rhythm. Positive first and second heart sounds with a 1/6 crescendo-decrescendo murmur to the right sternal border. LUNGS: Clear to auscultation bilaterally. No wheezes, rales or rhonchi. ABDOMEN: Soft, nontender, nondistended. No organomegaly noted. EXTREMITIES: No clubbing, cyanosis or edema. Femoral and distal pulses intact bilaterally. NEUROLOGIC: No focal deficits. SKIN: Warm, dry and intact. OOSTEOPATHIC: No kyphoscoliosis, lordosis or paraspinal tender points. LABORATORY FINDINGS Hemoglobin 12.6, hematocrit 37.4, platelets 247. Potassium 4.1, BUN 23, creatinine 1.3, troponin 0.02. CARDIOLOGY STUDIES Electrocardiogram (May 30, 2017 at 12:49) sinus bradycardia with sinus arrhythmia, first degree AV block, left anterior fascicular block, poor R-wave progression. No significant change from November 06, 2009. IMPRESSION 1. Fall most likely mechanical in nature. 2. Accelerated hypertension upon presentation. 3. Hyperlipidemia. RECOMMENDATIONS 1. Mr. Villalobos' episode appears to be most likely a mechanical fall. 2. Because of his fall, we will watch him on telemetry overnight to make sure no arrhythmias. 3. Due to his accelerated hypertension and a murmur appearing to be probably mild aortic stenosis versus mild mitral regurgitation, we will check a 2-D echo to look at his overall left ventricular function, cardiac structure and possible valopathies. 4. Because of his hypertension, I will plan on placing him on Norvasc 2.5 mg daily. This can be followed up in the outpatient for titration up if blood pressure is continued to be noted to be elevated. 5. If stable in the morning and results of his echo are relatively normal, he may be discharged home. Thank you for allowing me to see Sam Villalobos. If there are any questions, please do not hesitate to call. Dandre De Dios DO VGP/ /7:25 PM /8:24 PM ALESSANDRO
[2017-05-30] MEDS ORDERED: PILL SPLITTER OTHER PRN (21:00)
[2017-05-30] MEDS ORDERED: SODIUM CHLORIDE 0.9% FLUSH 10 ML FLUSH IV FLUSH SCH (21:00)
[2017-05-30] MEDS ORDERED: GABAPENTIN 300 MG CAP PO SCH (21:00)
[2017-05-30] MEDS ORDERED: PRAVASTATIN SOD 80 MG TAB PO SCH (21:00)
[2017-05-30 22:34] LABS: CREATINE KINASE 92 U/L (39-308)
[2017-05-31 00:19] VITALS: PULSE 61
[2017-05-31 03:57] VITALS: BP 150/68; PULSE 58; RESP 18; TEMP 98; O2SAT 98
[2017-05-31 04:11] LABS: BASOPHIL # 0.1 TH/MM3 (0-0.2); BASOPHIL % 0.6 % (0.0-2.0); EOSINOPHIL # 0.3 TH/MM3 (0-0.4); EOSINOPHIL % 2.9 % (0.0-4.0); HEMATOCRIT 34.3 % (39.0-51.0); HEMO FLAGS DIFF FINAL; LYMPH % 24.3 % (9.0-44.0); LYMPHOCYTE # 2.3 TH/MM3 (1.0-4.8); MEAN CELL VOLUME 88.2 FL (80.0-100.0); MEAN CORPUSCULAR HEMOGLOBIN 29.9 PG (27.0-34.0); MEAN CORPUSCULAR HGB CONC 33.9 % (32.0-36.0); MONO % 8.7 % (0.0-8.0); NEUT % 63.5 % (16.0-70.0); PLATELET COUNT 222 TH/MM3 (150-450); RED BLOOD COUNT 3.88 MIL/MM3 (4.50-5.90); RED CELL DISTRIBUTION WIDTH 13.9 % (11.6-17.2); WHITE BLOOD COUNT 9.4 TH/MM3 (4.0-11.0)
[2017-05-31 04:41] LABS: ANION GAP 4 MEQ/L (5-15); AST (GOT) 14 U/L (15-37); BLOOD UREA NITROGEN 21 MG/DL (7-18); CHLORIDE 106 MEQ/L (98-107); GLOMERULAR FILTRATION RATE 65 ML/MIN (>89); POTASSIUM 3.9 MEQ/L (3.5-5.1); SODIUM (NA) 139 MEQ/L (136-145)
[2017-05-31 04:51] LABS: ALKALINE PHOSPHATASE 69 U/L (45-117); ALT (GPT) 19 U/L (12-78); FREE T4 0.94 NG/DL (0.76-1.46); TOTAL BILIRUBIN ADULT 0.4 MG/DL (0.2-1.0)
[2017-05-31 04:54] LABS: CREATINE KINASE 81 U/L (39-308)
[2017-05-31 07:50] VITALS: BP 159/71; PULSE 61; RESP 20; TEMP 97.9; O2SAT 95
[2017-05-31] MEDS: DOCUSATE SODIUM 50 MG/SENNA 8.6 MG TAB PO SCH (08:09)
[2017-05-31] MEDS: SODIUM CHLORIDE 0.9% FLUSH 10 ML FLUSH IV FLUSH SCH (08:09)
[2017-05-31] MEDS: traMADol HCL 50 MG TAB PO SCH (08:10)
[2017-05-31 08:15] VITALS: PULSE 72
[2017-05-31] MEDS ORDERED: amLODIPine BESYLATE 5 MG TAB PO SCH (09:00)
[2017-05-31] MEDS ORDERED: ACETAMINOPHEN/CODEINE 300 MG/30 MG TAB PO PRN (09:30)
--- NOTE | 2017-05-31 09:32 | HHI.PR ---
Subjective Remarks Follow-up for fall and subsequent syncope. The patient is seen with his daughter at bedside. He is doing well today. He is hoping to go home soon. He tripped on an uneven sidewalk yesterday and hit his head. He did have a syncopal episode after that. He denies any syncope or any other symptoms prior to his fall or hitting his head. He denies any lightheadedness, dizziness, unsteadiness sitting or standing. He does have some soreness from where he fell in his left thumb and right anterior shoulder. He states she's prescribed tramadol for pain, but doesn't feel like that does much for him, previously on Tylenol #3 which helped a lot. The patient states he will be going home with his daughter. Objective Vitals Vital Signs Date Time Temp Pulse Resp B/P (MAP) Pulse Ox O2 Delivery O2 Flow Rate FiO2 05/31/17 08:15 72 05/31/17 07:50 97.9 61 20 159/71 (100) 95 05/31/17 03:57 98.0 58 18 150/68 (95) 98 05/31/17 00:19 61 05/30/17 23:09 98.6 59 18 115/56 (75) 98 05/30/17 21:05 61 05/30/17 20:14 99 05/30/17 19:49 98.1 63 18 140/75 (96) 98 166/70 (102) 166/64 (98) 05/30/17 17:16 97.7 57 24 156/69 (98) 97 05/30/17 16:00 97.8 59 16 150/76 (100) 99 05/30/17 15:23 97.9 59 17 172/71 (104) 99 Room Air 05/30/17 13:17 66 16 146/67 (93) 98 05/30/17 13:13 16 98 Room Air 05/30/17 12:58 61 16 98 Room Air 05/30/17 12:45 97.8 60 16 203/88 (126) I/O 05/30/17 05/30/17 05/30/17 05/31/17 05/31/17 05/31/17 07:00 15:00 23:00 07:00 15:00 23:00 Intake Total 1000 ml 480 ml Balance 1000 ml 480 ml Intake Oral 480 ml IV Total 1000 ml Result Diagram: 05/31/17 0322 05/31/17 0322 Imaging Last Impressions Head CT 05/30/17 1258 Signed Impressions: Service Date/Time: Tuesday, May 30, 2017 14:07 - CONCLUSION: 1. Senescent changes. 2. No acute intracranial abnormality. Wan Lockwood MD Chest X-Ray 05/30/17 1258 Signed Impressions: Service Date/Time: Tuesday, May 30, 2017 13:33 - CONCLUSION: No acute disease. Hardik Jefferson MD Carotid Artery Ultrasound 05/30/17 0000 Signed Impressions: Service Date/Time: Tuesday, May 30, 2017 16:51 - CONCLUSION: Minimal carotid plaque without evidence of hemodynamically significant stenosis. Antegrade flow both vertebral arteries. Tomy Leiva MD Objective Remarks GENERAL: Well-developed well-nourished. In no acute distress. SKIN: Warm and dry. Right eyebrow laceration repair with sutures. Otherwise superficial abrasions on the right elbow, right knee, left hand. HEENT: Normocephalic. Pupils equal and round. Slight horizontal nystagmus noted. Mucous membranes pink and moist. CARDIOVASCULAR: Regular rate and rhythm. No murmur appreciated. RESPIRATORY: No accessory muscle use. Clear to auscultation. Breath sounds equal bilaterally. GASTROINTESTINAL: Abdomen soft, non-tender, nondistended. Bowel sounds x4. MUSCULOSKELETAL: No obvious deformities. No clubbing or cyanosis. No edema. Right shoulder with good ROM and minimal discomfort, mild tenderness to palpation of the anterior shoulder and chest. Full active ROM left hand and wrist. NEUROLOGICAL: Awake and alert. No focal neurological deficits. Moves upper and lower extremities spontaneously. Normal speech. PSYCHIATRIC: Appropriate mood and affect; insight and judgment normal. A/P Problem List: (1) Fall from standing ICD Code: W19.XXXA - Unspecified fall, initial encounter Status: Acute (2) Abrasion, right knee, initial encounter ICD Code: S80.211A - Abrasion, right knee, initial encounter Status: Acute (3) Syncope ICD Code: R55 - Syncope and collapse Status: Acute (4) Laceration of skin of face ICD Code: S01.81XA - Laceration without foreign body of other part of head, initial encounter Status: Acute Assessment and Plan 87-year-old male with a past medical history of OA, HLD who presented after a mechanical fall with subsequent syncopal episode after he hit his head Mechanical fall with closed head injury and subsequent syncope: Possible mild concussion, although symptoms are minimal and improving. Head CT with age-related changes and no acute intracranial abnormality. Carotid ultrasound with no evidence of hemodynamically significant stenosis. -Cardiology consulted with syncope, discussed with willian Regalado for discharge if echocardiogram is unremarkable -PT/OT -Stop Tramadol for now and resume pain control with Tylenol No. 3 as needed -Continue local wound care for eyebrow laceration. Patient instructed to have sutures removed in 5-7 days. Hypertension: Not optimally controlled. Started on amlodipine 2.5 mg daily. Hyperlipidemia: Chronic. Continue statin. DVT prophylaxis: SCDs Discharge Planning Follow-up results of echocardiogram. If patient is able to ambulate with therapy with no symptoms, likely discharge later today. Problem Qualifiers (1) Fall from standing: Qualified Codes: W19.XXXA - Unspecified fall, initial encounter (2) Syncope: Qualified Codes: R55 - Syncope and collapse (3) Laceration of skin of face: Qualified Codes: S01.81XA - Laceration without foreign body of other part of head, initial encounter Riccardo Saeed May 31, 2017 09:32
[2017-05-31 12:24] VITALS: BP 128/63; PULSE 51; RESP 20; TEMP 97.7; O2SAT 97
[2017-05-31 12:58] VITALS: PULSE 52
--- NOTE | 2017-05-31 13:33 | ECHRPT ---
Indication: hypertensive heart disease CONCLUSIONS The left ventricular systolic function is normal with an estimated ejection fraction in the range of 55-60%. Doppler parameters are consistent with impaired left ventricular relaxtion (grade 1 diastolic dysfun ction). There is trace tricuspid valve regurgitation. BP: 150 / 68 HR: 58 Rhythm: MEASUREMENTS (Male / Female) Normal Values Technical Quality: 2D ECHO LV Diastolic Diameter PLAX 4.9 cm 4.2 - 5.9 / 3.9 - 5.3 cm LV Systolic Diameter PLAX 3.5 cm IVS Diastolic Thickness 1.1 cm 0.6 - 1.0 / 0.6 - 0.9 cm LVPW Diastolic Thickness 1.0 cm 0.6 - 1.0 / 0.6 - 0.9 cm LV Relative Wall Thickness 0.4 RV Internal Dim ED PLAX 2.3 cm LA Systolic Diameter LX 4.0 cm 3.0 - 4.0 / 2.7 - 3.8 cm DOPPLER Mitral E Point Velocity 61.7 cm/s Mitral A Point Velocity 85.4 cm/s Mitral E to A Ratio 0.7 TR Peak Velocity 197.0 cm/s TR Peak Gradient 15.5 mmHg Right Atrial Pressure 5.0 mmHg Pulmonary Artery Systolic Pressu 20.5 mmHg Right Ventricular Systolic Press 20.5 mmHg FINDINGS LEFT VENTRICLE Normal left ventricular size. Wall thickness is normal. The left ventricular systolic function is normal with an estimated ejection fraction in the range of 55-60%. Doppler parameters are consistent with impaired left ventricular relaxtion (grade 1 diastolic dysfun ction). RIGHT VENTRICLE Normal right ventricular size and systolic function. LEFT ATRIUM The left atrial size is upper limits of normal. RIGHT ATRIUM The right atrial size is normal. ATRIAL SEPTUM The interatrial septum not well visualized. AORTA The aortic root and proximal ascending aorta are normal in size on limited imaging. MITRAL VALVE Mild mitral annular calcification. Structurally normal mitral valve. No mitral valve regurgitation. No mitral valve stenosis. AORTIC VALVE Trileaflet aortic valve. No aortic valve stenosis or regurgitation. TRICUSPID VALVE Structurally normal tricuspid valve. There is trace tricuspid valve regurgitation. No tricuspid valve stenosis. The estimated pulmonary arterial pressure is 21 mmHg. PULMONARY VALVE No pulmonary valve regurgitation or stenosis. The pulmonary valve is not well visualized. VESSELS The inferior vena cava is normal in size. PERICARDIUM No pericardial effusion. Ottoniel Almaguer DO (Electronically Signed) Final Date:31 May 2017 13:32
[2017-05-31] MEDS ORDERED: ACET-534 PO (13:38)
[2017-05-31] MEDS ORDERED: AMLO5 PO (13:38)
--- NOTE | 2017-05-31 14:07 | PD.CARD.PN ---
Subjective Subjective Remarks No events overnight No chest pain/SOB Objective Medications Current Medications Medications (Trade) Dose Ordered Sig/Mike Route Start Time Stop Time Status Last Admin (NS Flush) 2 ml UNSCH PRN IV FLUSH 05/30/17 16:00 (NS Flush) 2 ml BID IV FLUSH 05/30/17 21:00 05/31/17 08:09 (Tylenol) 650 mg Q4H PRN PO 05/30/17 16:00 (Zofran Inj) 4 mg Q6H PRN IVP 05/30/17 16:00 (Compazine Supp) 25 mg Q12H PRN RECTAL 05/30/17 16:00 (Tylenol) 650 mg Q6H PRN PO 05/30/17 16:00 (Morphine Inj) 2 mg Q3H PRN IV PUSH 05/30/17 16:30 (Morphine Inj) 4 mg Q3H PRN IV PUSH 05/30/17 16:00 (Narcan Inj) 0.4 mg UNSCH PRN IV PUSH 05/30/17 16:00 (Kimberley-Colace) 1 tab BID PO 05/30/17 21:00 05/31/17 08:09 (Milk Of Magnesia Liq) 30 ml Q12H PRN PO 05/30/17 16:00 (Senokot) 17.2 mg Q12H PRN PO 05/30/17 16:00 (Dulcolax Supp) 10 mg DAILY PRN RECTAL 05/30/17 16:00 (Lactulose Liq) 30 ml DAILY PRN PO 05/30/17 16:00 (Neurontin) 300 mg HS PO 05/30/17 21:00 (Pravachol) 80 mg HS PO 05/30/17 21:00 05/30/17 20:13 (Norvasc) 2.5 mg DAILY PO 05/31/17 09:00 05/31/17 08:09 (Pill Splitter) 1 ea UNSCH PRN OTHER 05/30/17 21:00 (Tylenol-Codeine #3) 1 tab Q4H PRN PO 05/31/17 09:30 Vital Signs / I&O Vital Signs Date Time Temp Pulse Resp B/P (MAP) Pulse Ox O2 Delivery O2 Flow Rate FiO2 05/31/17 12:58 52 05/31/17 12:24 97.7 51 20 128/63 (84) 97 05/31/17 08:15 72 05/31/17 07:50 97.9 61 20 159/71 (100) 95 05/31/17 03:57 98.0 58 18 150/68 (95) 98 05/31/17 00:19 61 05/30/17 23:09 98.6 59 18 115/56 (75) 98 05/30/17 21:05 61 05/30/17 20:14 99 05/30/17 19:49 98.1 63 18 140/75 (96) 98 166/70 (102) 166/64 (98) 05/30/17 17:16 97.7 57 24 156/69 (98) 97 05/30/17 16:00 97.8 59 16 150/76 (100) 99 05/30/17 15:23 97.9 59 17 172/71 (104) 99 Room Air I/O 05/30/17 05/30/17 05/30/17 05/31/17 05/31/17 05/31/17 07:00 15:00 23:00 07:00 15:00 23:00 Intake Total 1000 ml 480 ml Balance 1000 ml 480 ml Intake Oral 480 ml IV Total 1000 ml Physical Exam GENERAL: NAD, AAOx3 SKIN: Warm and dry. HEAD: Laceration sutured over right eye. Normocephalic. EYES: Pupils equal and round. No scleral icterus. No injection or drainage. ENT: No nasal bleeding or discharge. Mucous membranes pink and moist. NECK: Trachea midline. No JVD. CARDIOVASCULAR: Regular rate and rhythm. RESPIRATORY: No accessory muscle use. Clear to auscultation. Breath sounds equal bilaterally. GASTROINTESTINAL: Abdomen soft, non-tender, nondistended. Hepatic and splenic margins not palpable. MUSCULOSKELETAL: Extremities without clubbing, cyanosis, or edema. No obvious deformities. NEUROLOGICAL: Awake and alert. No obvious cranial nerve deficits. Motor grossly within normal limits. Five out of 5 muscle strength in the arms and legs. Normal speech. PSYCHIATRIC: Appropriate mood and affect; insight and judgment normal. Laboratory Laboratory Tests Test 05/30/17 21:56 05/31/17 03:22 Total Creatine Kinase 92 U/L 81 U/L Troponin I LESS THAN 0.02 NG/ML LESS THAN 0.02 NG/ML White Blood Count 9.4 TH/MM3 Red Blood Count 3.88 MIL/MM3 Hemoglobin 11.6 GM/DL Hematocrit 34.3 % Mean Corpuscular Volume 88.2 FL Mean Corpuscular Hemoglobin 29.9 PG Mean Corpuscular Hemoglobin Concent 33.9 % Red Cell Distribution Width 13.9 % Platelet Count 222 TH/MM3 Mean Platelet Volume 8.4 FL Neutrophils (%) (Auto) 63.5 % Lymphocytes (%) (Auto) 24.3 % Monocytes (%) (Auto) 8.7 % Eosinophils (%) (Auto) 2.9 % Basophils (%) (Auto) 0.6 % Neutrophils # (Auto) 6.0 TH/MM3 Lymphocytes # (Auto) 2.3 TH/MM3 Monocytes # (Auto) 0.8 TH/MM3 Eosinophils # (Auto) 0.3 TH/MM3 Basophils # (Auto) 0.1 TH/MM3 CBC Comment DIFF FINAL Differential Comment Blood Urea Nitrogen 21 MG/DL Creatinine 1.08 MG/DL Random Glucose 101 MG/DL Total Protein 6.2 GM/DL Albumin 3.1 GM/DL Calcium Level 8.2 MG/DL Phosphorus Level 3.0 MG/DL Magnesium Level 2.0 MG/DL Alkaline Phosphatase 69 U/L Aspartate Amino Transf (AST/SGOT) 14 U/L Alanine Aminotransferase (ALT/SGPT) 19 U/L Total Bilirubin 0.4 MG/DL Sodium Level 139 MEQ/L Potassium Level 3.9 MEQ/L Chloride Level 106 MEQ/L Carbon Dioxide Level 29.0 MEQ/L Anion Gap 4 MEQ/L Estimat Glomerular Filtration Rate 65 ML/MIN Free Thyroxine 0.94 NG/DL Thyroid Stimulating Hormone 3rd Gen 1.610 uIU/ML Assessment and Plan Problem List: (1) Fall from standing ICD Codes: W19.XXXA - Unspecified fall, initial encounter Status: Acute (2) Laceration of skin of face ICD Codes: S01.81XA - Laceration without foreign body of other part of head, initial encounter Status: Acute (3) Abrasion, right knee, initial encounter ICD Codes: S80.211A - Abrasion, right knee, initial encounter Status: Acute (4) HTN (hypertension) ICD Codes: I10 - Essential (primary) hypertension Assessment and Plan 1) Doing well, no complaints while up with PT 2) EF 55-60%, DD1 3) Started on Norvasc 2.5mg daily, can be titrated up as needed 4) No syncope, most likely mechanical fall 5) Cardiovascularly stable for discharge Problem Qualifiers (1) Fall from standing: Qualified Codes: W19.XXXA - Unspecified fall, initial encounter (2) Laceration of skin of face: Qualified Codes: S01.81XA - Laceration without foreign body of other part of head, initial encounter Ottoniel Almaguer DO May 31, 2017 14:07
[2017-05-31 15:04] LABS: HEMOGLOBIN A1a 1.2 %; HEMOGLOBIN Ao 83.2 %; HEMOGLOBIN F 1.1 %; HEMOGLOBIN LA1C 2.1 %; HEMOGLOBIN P3 4.2 %
--- NOTE | 2017-05-31 23:24 | EKG ---
Date Performed: 05/30/2017 Time Performed: 21:48:28 PTAGE: 87 years EKG: Sinus rhythm WITH MARKED SINUS ARRHYTHMIA WITH FIRST DEGREE AV BLOCK LOW QRS VOLTAGE IN PRECORDIAL LEADS LEFT ANT ERIOR FASCICULAR BLOCK POSSIBLE ANTERIOR MYOCARDIAL INFARCTION ABNORMAL ECG PREVIOUS TRACING : 05/30/2017 12.49 Compared to prior tracing no significant change DOCTOR: Ottoniel Almaguer Interpretating Date/Time 05/31/2017 23:22:29
--- NOTE | 2017-06-01 00:04 | EKG ---
Date Performed: 05/30/2017 Time Performed: 12:49:16 PTAGE: 87 years EKG: SINUS BRADYCARDIA WITH SINUS ARRHYTHMIA WITH FIRST DEGREE AV BLOCK LEFT ANTERIOR FASCICULAR BLOCK POSSIBLE ANTERIOR MYOCARDIAL INFARCTION ABNORMAL ECG PREVIOUS TRACING : 11/06/2009 09.46 Compared to prior tracing no significant change DOCTOR: Ottoniel Almaguer Interpretating Date/Time 06/01/2017 00:04:08
== END 2017-05-31 15:14 | disposition home or self-care (01) ==
LOC: NEPC 12:35 → NEDA 15:50 → NEPHCDU 16:52
PROVIDERS: ADMIT Hospitalist; ATTEND Hospitalist
DX: R55 Syncope and collapse (principal); S01.81XA Laceration without foreign body of other part of head, initial encounter; S80.211A Abrasion, right knee, initial encounter; S60.512A Abrasion of left hand, initial encounter; S50.311A Abrasion of right elbow, initial encounter; I10 Essential (primary) hypertension; E78.00 Pure hypercholesterolemia, unspecified; E78.5 Hyperlipidemia, unspecified; K21.9 Gastro-esophageal reflux disease without esophagitis; I44.0 Atrioventricular block, first degree; I44.4 Left anterior fascicular block; I49.8 Other specified cardiac arrhythmias; M19.90 Unspecified osteoarthritis, unspecified site; Z79.899 Other long term (current) drug therapy; Z85.51 Personal history of malignant neoplasm of bladder; W19.XXXA Unspecified fall, initial encounter; Y92.481 Parking lot as the place of occurrence of the external cause; Z23 Encounter for immunization
CPT/HCPCS: 12011; 70450; 71010; 80053; 82550; 83036; 83735; 84100; 84439; 84443; 84484; 85025; 85610; 85730; 90471; 90714; 93005; 93306; 93880; 96360; G0378; G8987-GO; G8987-GP; G8988-GO; G8988-GP; G8989-GO; J7030

== ENCOUNTER 2017-06-05 16:28 | Emergency (ER) | payer MEDICARE, OTHER ==
[~2017-06-05] VITALS: Ht 175.3 cm; Wt 78.0 kg
[~2017-06-05 16:28] MED LIST changes: +ACET-534 PO; -AMBI5TAB PO; +AMLO5 PO; -COUM5TAB PO; -DARV PO; -DIOV160T6 PO; +GABA300C5 PO; -LORT7.5T3 PO
[2017-06-05 16:29] VITALS: BP 162/71; PULSE 113; RESP 18; TEMP 98.4; O2SAT 94
--- NOTE | 2017-06-05 17:46 | PD ---
HPI Chief Complaint: Wound/Suture/Staple Re-Check Time Seen by Provider: 17:34 Travel History International Travel<30 days: No Contact w/Intl Traveler<30days: No Traveled to known affect area: No History of Present Illness HPI 87-year-old male presents to the emergency department for removal of sutures from his right eyelid. These were placed 10 days ago following a syncopal episode. Patient reports no pain of Cipro. He has had no fever or chills. He has had no difficulty with them. No other symptoms to report. PFSH Past Medical History Blood Disorders: No Heart Rhythm Problems: No Cancer: Yes (hx of bladder) Cardiovascular Problems: Yes High Cholesterol: Yes Chemotherapy: Yes (yes) Chest Pain: No Congestive Heart Failure: No Diminished Hearing: No Endocrine: No Gastrointestinal Disorders: Yes GERD: Yes Genitourinary: Yes (hx of bladder cancer) Hypertension: Yes Immune Disorder: No Musculoskeletal: No Neurologic: No Psychiatric: No Reproductive: No Respiratory: No Past Surgical History Abdominal Surgery: Yes (appendectomy) Eye Surgery: Yes (luz cataract removal) Genitourinary Surgery: Yes (extensive bladder surgery due to cancer received chemo) Other Surgery: Yes Social History Alcohol Use: Yes (occ) Tobacco Use: No Substance Use: No Allergies-Medications (Allergen,Severity, Reaction): Coded Allergies: No Known Allergies (Unverified , 05/30/17) Reported Meds & Prescriptions Reported Meds & Active Scripts Active Acetaminophen/Codeine Geeta 300-30 mg (Acetaminophen W/ Codeine) 300 Mg-30 Mg Tab 1 Tab PO Q6HR PRN Norvasc (Amlodipine Besylate) 5 Mg Tab 2.5 Mg PO DAILY Reported Gabapentin 300 Mg Cap 300 Mg PO HS Zocor (Simvastatin) 40 Mg Tab 40 Mg PO HS Review of Systems Except as stated in HPI: all other systems reviewed are Neg Physical Exam Narrative GENERAL: Well-nourished, well-developed elderly male patient, in no acute distress SKIN: Focused skin assessment warm/dry. 1.5 cm well approximated laceration right eyelid. Well approximated. No erythema or edema. No drainage. HEAD: Normocephalic. EYES: No scleral icterus. No injection or drainage. EOMIs. PERRL NECK: Supple, trachea midline. No JVD or lymphadenopathy. CARDIOVASCULAR: Regular rate and rhythm without murmurs, gallops, or rubs. RESPIRATORY: Breath sounds equal bilaterally. No accessory muscle use. Data Data Last Documented VS Vital Signs Date Time Temp Pulse Resp B/P (MAP) Pulse Ox O2 Delivery O2 Flow Rate FiO2 06/05/17 17:50 06/05/17 16:29 98.4 113 18 94 Room Air Orders Orders Ed Discharge Order (06/05/17 17:46) MDM Medical Decision Making Medical Screen Exam Complete: Yes Emergency Medical Condition: Yes Medical Record Reviewed: Yes Differential Diagnosis Laceration superficial versus deep versus wound dehiscence versus healing wound Narrative Course 87 Domi presents to emergency department for removal of sutures from his right eyelid. 4 sutures are removed without difficulty. The wound appears to be well-healed. He is counseled on care and encouraged follow-up with primary care provider. He agrees to return immediately for any acute worsening of symptoms Diagnosis Primary Impression: Encounter for removal of sutures Referrals: Primary Care Physician Patient Instructions: General Instructions, Laceration (ED) Additional Instructions: Keep the area clean and dry Follow-up with a primary care provider Return immediately with any acute worsening of symptoms Med/Other Pt SpecificInfo: No Change to Meds Disposition: 01 DISCHARGE HOME Condition: Stable Albina Tracey Jun 05, 2017 17:46
== END 2017-06-05 17:56 | disposition home or self-care (01) ==
LOC: NEPK 16:28
DX: Z48.02 Encounter for removal of sutures (principal)
CPT/HCPCS: 99281

== ENCOUNTER → 2017-12-05 | Day surgery (SDC) | payer MEDICARE, OTHER ==
[~2017-12-05] MED LIST changes: +GENTAMICIN SULFATE 80 MG/2 ML VIAL ONE; +LACTATED RINGER'S 1000 ML INJ 1,000 ML ONE; +NS 100 ML (PAB BAG) 100 ML IV ONE; +PROPOFOL 200 MG/20 ML AMP IV ONE
--- NOTE | 2017-12-05 10:45 | TN ---
cc: Rik Dominguez MD DATE OF SURGERY: 12/05/2017 DATE OF PROCEDURE: 12/05/2017 PREOPERATIVE DIAGNOSIS: Recurrent bladder cancer (ICD-10 code C67.6). POSTOPERATIVE DIAGNOSIS:. Recurrent bladder cancer (ICD-10 code C67.6). PROCEDURE PERFORMED: Transurethral resection of bladder tumor (TURBT) (CPT code 98012). INDICATION FOR PROCEDURE: Mr. 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 He underwent previous resection many years ago and in 2006 underwent a urethrotomy of the stricture, left ureteral orifice and has had multiple low grade recurrences over the years and recently under surveillance cystoscopy was found to have some suspicious lesions in the periureteral orifice area. He presents now for definitive treatment. FINDINGS: Normal anterior and posterior urethra. Some mild to moderate bilobular hyperplasia, elevated and open bladder neck. Ureteral orifice on the right, normal size, shape and position, effluxing clear urine. The neoureteral orifice on the left has some small wispy papillary lesions suspicious for a low-grade transitional cell carcinoma, some are just at the opening of the orifice, but we were able to visualize the distal ureter in total and there were absolutely no lesions in the intramural portion of the ureteral orifice under direct vision. The remainder of the bladder was unremarkable essentially. There are no significant trabeculation or diverticula or cellules. DESCRIPTION OF PROCEDURE: The procedure was explained to the patient. Informed consent was obtained. The patient was taken to the major operative theater where he was placed in the supine position. The patient was identified as well as the operative side. A universal timeout was performed in the standard fashion. At this time, general anesthetic and prophylactic intravenous antibiotics consisting of gentamicin 80 mg was administered. After adequate anesthetic, he was placed in the low dorsal lithotomy position, prepped and draped in the usual sterile fashion. At this time, a 22.5-Tunisian cystoscope with a 30-degree lens was inserted into urethra and bladder. The 30-degree lens was exchanged for the 70-degree lens. The entire bladder was systematically surveyed with the above findings. At this time, attention was directed to the left ureteral orifice, where a judicious transurethral resection of the tumors was performed using a rigid biopsy forceps. The total volume was likely around 1 cm. Any suspicious areas were resected including those just at the opening of the neoureteral orifice on the left. These were all sent for final pathological evaluation. At this time, using a low coagulation setting and very meticulous fulgurization, fulguration of the biopsy sites was performed. The area at the orifice was not fulgurated and was allowed to slowly ooze. There appeared to be no significant bleeding vessels and no evidence of any additional lesions left behind. Photodocumentation pre and post were also performed. At this time, after confirming relative hemostasis and no additional lesions, the bladder was decompressed and the scope removed. The patient tolerated the procedure well, emerged from anesthetic without difficulty and transferred to the recovery room in stable condition to be discharged home when criteria is met. No obvious complications. MD MARY Yadav/ROBERTO , 10:12 AM , 10:44 AM
== END | disposition home or self-care (01) ==
LOC: ESDC 07:02
PROVIDERS: ATTEND Urology
DX: C67.6 Malignant neoplasm of ureteric orifice (principal)
CPT/HCPCS: 00912; 52234; 88305; J1580; J3010; J7120